=== PATIENT | male | born 1935 | race Hispanic/Latino ===

== ENCOUNTER 2018-02-02 15:33 | Inpatient (IN) | payer MEDICARE, MEDICAID ==
--- NOTE | 2018-02-02 15:38 | ED PDOC ---
Psych Transfer Clearance - Clearance Statement Clearance Statement: Reviewed vital signs, lab results and transfer papers. Patient clinically stable for psychiatric admission.
[2018-02-02 15:39] VITALS: O2SAT 96
[2018-02-02] MEDS ORDERED: Alum-Mag Hydrox-Simethicone Susp (30 mL) PO PRN (17:06)
[2018-02-02] MEDS ORDERED: Magnesium Hydroxide Susp 30 ml UD PO PRN (17:06)
[2018-02-02] MEDS ORDERED: Bismuth Subsalicylate 262 mg/15 ml Sus (240 ml) PO PRN (17:06)
--- NOTE | 2018-02-02 18:22 | PCM.BM ---
<Uma Colunga - Last Filed: 02/02/18 18:20> Treatment Plan Problems - Problems identified on initial assessmt Hopelessness/Helplessness Date Initiated: 02/02/18 Time Initiated: 18:21 Assessment reference: NA Status: Active Social Isolation Date Initiated: 02/02/18 Time Initiated: 18:21 Assessment reference: NA Status: Active Treatment assets and liabiliti Patient Assests: adapts well, cooperative, educated, ADL independent, physically healthy Patient Liabilities: live alone, poor support system, medical problems - Milieu Protocol Maintain good personal hygiene: daily Encourage regular showers, daily Remind patient to perform daily oral care, daily Assist patient to perform ADL's Maintain personal safety: daily Educate patient to report safety concerns to staff, daily Monitor environment for contraband/sharps, every shift Educate patient to report safety concerns to staff, every shift Monitor environment for contraband/sharps Medication safety: Monitor for expected outcome, potential side effects: daily, every shift, Assess barriers to learning: daily, every shift, Assess readiness for medication education: daily, every shift <Dorothy Munoz - Last Filed: 02/03/18 10:16> - Diagnosis (1) Major depressive disorder Status: Acute Interventions: Medication management, Individual and group therapy, Psychoeducation 02/03/18 10:16 <Phi Whipple - Last Filed: 02/04/18 15:57> Family Contact Family involvement: Family/SO is involved Family contact: Patient agrees to contact, Family has been contacted by patient , Telephone contact initiated by staff Family contact name: Sharmin Denis Family contacted how many times per week?: 3 Family contact comment: [employer]ist spoke with pt's cousin and POA, Sharmin , who reported that pt has episodes or "fits" as Sharmin reported that pt calls them where he becomes agitated, aggressive and threatening and will call her and her derogatory names when they do not do what he wants or feels that they are neglecting him. Sharmin reported that pt has even shaken his fists and cane at her and threatened to hit her. Sharmin reported that pt also goes through episodes of paranoia where he threatens to sunshine the government for opening his mail and breaking into his apartment. Pt has also had several bug infestations in his apartment and reported that the government planted bugs in his apartment to give him the bites. Sharmin then reported that pt hoards things in his apartment and used coffee cups in his car. - Goals for Treatment Patient goals for treatment: Pt offered no specific goals. Patient's family/SO goals for treatment: Pt's cousin, Sharmin, would like pt to be placed on medications to better manage his irritable behavior and paranoia. Discharge/Continuing Care - Education Needs Education Needs: Family Medication, Family Diagnosis/Disease Process, Family Coping Skills, Family Anger Management skills, Family Community resources, Family Personal Hygiene/Grooming, Family Aftercare Safety Plan, Patient Medication, Patient Diagnosis/Disease Process, Patient Coping Skills, Patient Anger Management skills, Patient Community resources, Patient Personal Hygiene/ Grooming, Patient Aftercare Safety Plan - Discharge Discharge Criteria: Tolerates medication w/o severe side effects, Free of paranoid thoughts, Free of agitation, Normal sleep pattern, Ability to care for self, Reduction of target symptoms Discharge to:: Home - Treatment Team Participation Patient/Family/SO Statement: 02/04/18 15:56 Pt reported that he was feeling better and denied any acute psychiatric concerns at this time. Pt did report that he wished that his family was more active in his life. Pt reported he already is connected to and attends a day program in [place]. Discussed with Family/SO: Yes Was Patient/Family/SO present at Treatment Team Meeting: Yes
--- NOTE | 2018-02-02 20:48 | CP.PCM.CON ---
History of Present Illness - History of Present Illness History of Present Illness: 82 y/o male obese with PMH bipolar disorder / depression not compliant with medications ( stopped taking his pills few months ago ) HTN, IDDM , history paroxysmal afib, sleep apnea , chronic skin dermatitis ?, has been transferred for psych admission from another ER . Medicine consulted for medical management . As per patient he has been diagnosed with depression long ago and has been hospitalized long time ago. He stopped taking his antidepressants few months ago and lately started feeling anxious and restless so decided to call his MD and go to ER for crisis eval. He denies any suicidal thoughts or ideation , denies hallucinations. Complains mostly of his weight and states that needs to loose weight.Denies any chest pain , SOB , palpitations, PND , orthopnea, urinary symptoms. States that had been having diarrhea while on Metformin/ januvia and after his PMD switched to insulin his diarrhea has resolved . 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 Yumiko Dominguez Review of Systems - Review of Systems All systems: reviewed and no additional remarkable complaints except Past Patient History - Tetanus Immunizations Tetanus Immunization: Unknown - Past Medical History & Family History Past Medical History?: Yes Past Family History: Reviewed and not pertinent - Past Social History Smoking Status: Never Smoked Chewing Tobacco Use: No Cigar Use: No Alcohol: None Drugs: Denies Home Situation {Lives}: Alone Domestic Violence: Negative - CARDIAC Hx Hypertension: Yes Other/Comment: high cholesterol - PULMONARY Hx Respiratory Disorders: No - NEUROLOGICAL Hx Neurological Disorder: No - HEENT Hx HEENT Problems: No Other/Comment: 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 - RENAL Hx Chronic Kidney Disease: No - ENDOCRINE/METABOLIC Hx Diabetes Mellitus Type 2: Yes - HEMATOLOGICAL/ONCOLOGICAL Hx Blood Disorders: No - INTEGUMENTARY Hx Dermatological Problems: No - MUSCULOSKELETAL/RHEUMATOLOGICAL Hx Arthritis: Yes (in the fngers) Hx Falls: No - GASTROINTESTINAL Hx Gastrointestinal Disorders: No - GENITOURINARY/GYNECOLOGICAL Hx Genitourinary Disorders: No - PSYCHIATRIC Hx Anxiety: Yes Hx Depression: Yes Hx Substance Use: No - SURGICAL HISTORY Hx Surgeries: Yes Hx Cataract Extraction: Yes (right eye) Other/Comment: inguinal hernia correction(1984) - ANESTHESIA Hx Anesthesia: Yes Hx Anesthesia Reactions: No Hx Malignant Hyperthermia: No Has any member of the family had a problem w/ anesthesia?: No Meds Allergies/Adverse Reactions: Allergies Allergy/AdvReac Type Severity Reaction Status Date / Time No Known Allergies Allergy Verified 02/02/18 15:37 - Medications Medications: Current Medications Acetaminophen (Tylenol 325mg Tab) 650 mg PO Q4 PRN PRN Reason: Pain, moderate (4-7) Al Hydrox/Mg Hydrox/Simethicone (Maalox Plus 30 Ml) 30 ml PO Q4 PRN PRN Reason: Dyspepsia Atorvastatin Calcium (Lipitor) 10 mg PO DAILY [facility] Bismuth Subsalicylate (Pepto-Bismol) 524 mg PO Q4 PRN PRN Reason: Diarrhea Home Med (Isosorbide Dinitrate [Isosorbide Dinitrate Er]) 60 mg PO DAILY [facility] Insulin Human Lispro (Humalog) 0 units SC ACHS PETER PRN Reason: Protocol Insulin Human Lispro (Humalog) 35 units SC ACB [facility] Insulin Lispro Protam/Lispro Human (Humalog Mix 75/25) 45 units SC ACD [facility] Lisinopril (Zestril) 20 mg PO DAILY [facility] Lorazepam (Ativan) 0.5 mg PO HS PRN PRN Reason: Insomnia Stop: 02/16/18 17:07 Lorazepam (Ativan) 0.5 mg PO Q6 PRN PRN Reason: Anxiety Lorazepam (Ativan) 0.5 mg IM Q6 PRN PRN Reason: Agitation Magnesium Hydroxide (Milk Of Magnesia) 30 ml PO HS PRN PRN Reason: Constipation Metoprolol Succinate (Toprol Xl) 50 mg PO DAILY [facility] Mupirocin (Bactroban Ointment) 1 applic TOP DAILY [facility] Prednisolone Acetate (Pred Forte 1% Opht Susp) 1 drop OU DAILY [facility] Quetiapine Fumarate (Seroquel) 25 mg PO HS [facility] Sitagliptin Phosphate (Januvia) 100 mg PO DAILY [facility] Physical Exam - Constitutional Appears: Non-toxic, No Acute Distress - Head Exam Head Exam: ATRAUMATIC, NORMAL INSPECTION, NORMOCEPHALIC - Eye Exam Additional comments: right eye blindness left eye cataract? - ENT Exam ENT Exam: Mucous Membranes Moist, Normal Exam - Neck Exam Neck exam: Positive for: Full Rom, Normal Inspection - Respiratory Exam Respiratory Exam: Clear to Auscultation Bilateral, NORMAL BREATHING PATTERN. absent: Rales, Rhonchi, Wheezes - Cardiovascular Exam Cardiovascular Exam: REGULAR RHYTHM, RRR, +S1, +S2. absent: JVD - GI/Abdominal Exam GI & Abdominal Exam: Distended (obese ), Normal Bowel Sounds, Soft. absent: Hernia, Mass, Rebound, Tenderness - Rectal Exam Rectal Exam: Deferred - Extremities Exam Extremities exam: Positive for: normal capillary refill, normal inspection, pedal pulses present. Negative for: pedal edema Additional comments: bilateral contact dermatitis with erythema and dry skin - Back Exam Back exam: NORMAL INSPECTION - Neurological Exam Neurological exam: Alert - Psychiatric Exam Psychiatric exam: Anxious, Flat Affect - Skin Skin Exam: Dry, Rash (to bilateral LE ) Results - Vital Signs Recent Vital Signs: Last Vital Signs Temp 99.0 F 02/02/18 15:38 Pulse 77 02/02/18 15:38 Resp 20 02/02/18 16:58 BP 149/80 02/02/18 15:38 Pulse Ox 96 02/02/18 15:38 - Labs Labs: Laboratory Results - last 24 hr 02/02/18 19:52 POC Glucose (mg/dL) 312 H Assessment & Plan - Assessment and Plan (Free Text) Assessment: 82 y/o male obese with PMH bipolar disorder / depression not compliant with medications ( stopped taking his pills few months ago ) HTN, IDDM , history paroxysmal afib, sleep apnea , chronic skin dermatitis ?, has been transferred for psych admission from another ER . Medicine consulted for medical management . As per patient he has been diagnosed with depression long ago and has been hospitalized long time ago. He stopped taking his antidepressants few months ago and lately started feeling anxious and restless so decided to call his MD and go to ER for crisis eval. He denies any suicidal thoughts or ideation , denies hallucinations. Complains mostly of his weight and states that needs to loose weight.Denies any chest pain , SOB , palpitations, PND , orthopnea, urinary symptoms. States that had been having diarrhea while on Metformin/ januvia and after his PMD switched to insulin his diarrhea has resolved . 1. Bipolar disorder/ depression management as per psych check TSH , Vitamin B12 , RPR Repeat CBC and CMP 2. IDDM resume home insulin regiment 45 unit SAQ in PM and 35 unit AM Accuchecks , insulin coverage diabetic diet 3.Hypertension Resume home meds lisinopril 4. Skin psoriatic Dermatitis ?? on topical steroids patient has follow up for skin biopsy as outpatient 5. Obesity BMI 31 6. 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
[2018-02-02] MEDS: Insulin Lispro (humaLOG) 100 Units/ml Inj SC SCH (21:08)
[2018-02-02 23:07] LABS: URINE BILIRUBIN NEGATIVE (NEGATIVE); URINE BLOOD NEGATIVE (NEGATIVE); URINE CLARITY CLEAR (Clear); URINE COLOR STRAW (YELLOW); URINE GLUCOSE (UA) 50 mg/dL (Normal); URINE LEUKOCYTE ESTERASE NEG Leu/uL (Negative); URINE PROTEIN NEGATIVE (NEGATIVE); URINE UROBILINOGEN 0.2-1.0 mg/dL (0.2-1.0)
[2018-02-03] MEDS ORDERED: INSULIN ASPART 35 UNIT SC SCH (07:30)
[2018-02-03] MEDS: Insulin Lispro (humaLOG) 100 Units/ml Inj SC SCH ×5 (08:27→21:08)
[2018-02-03] MEDS: Metoprolol Succinate 50 mg XL Tab PO SCH (08:29)
[2018-02-03] MEDS: PrednisoLONE 1% OPTH SUSP OU SCH (08:31)
[2018-02-03 09:32] LABS: HDL CHOLESTEROL 41 MG/DL (30-70)
[2018-02-03 09:42] LABS: LDL CHOLESTEROL 63 mg/dL (0-129)
[2018-02-03 09:48] LABS: T4 5.44 ug/dl (5.5-11.0)
[2018-02-03 10:05] LABS: FERRITIN 34.5 ng/Ml (17.9-464)
--- NOTE | 2018-02-03 10:17 | PCM.PSYCH ---
Initial Psychiatric Evaluation - Initial Psychiatric Evaluation Type of Admission: Voluntary Legal Status: Capacity Chief Complaint (in patient's own words): "I'm depressed." Patient's Reaction to Hospitalization: HPI: 82 yo male w/ h/o depression, not compliant with medication, presented w/ worsening depression and anxiety. +Sleep/appetite disturbances. +Feelings of helplessness/hopelessness. No acute AH/VH/SI/HI/paranoia/delusions/dejan. Patient reports that being estranged from his family causes him to feel lonely and depressed. He was agreeable to restarting treatment w/ antidepressant medication. PPHx: H/o outpatient psychiatric treatment, was on Paxil, but has been non- compliant. History of 3 or 4 psychiatric hospitalizations for depression in the past, but denies recent admissions. 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 ALL: NKDA Current Medications: Active Medications Generic Name Dose Route Start Last Admin Trade Name Freq PRN Reason Stop Dose Admin Acetaminophen 650 mg 02/02/18 17:06 Tylenol 325mg Tab PO Q4 PRN Pain, moderate (4-7) Al Hydrox/Mg Hydrox/Simethicone 30 ml 02/02/18 17:06 Maalox Plus 30 Ml PO Q4 PRN Dyspepsia Atorvastatin Calcium 10 mg 02/03/18 09:00 02/03/18 08:31 Lipitor PO 10 mg DAILY [facility]ER Administration Bismuth Subsalicylate 524 mg 02/02/18 17:06 Pepto-Bismol PO Q4 PRN Diarrhea Home Med 60 mg 02/03/18 09:00 Isosorbide Dinitrate [Isosorbide Dinitrate Er] PO DAILY [facility] Insulin Human Lispro 0 units 02/02/18 22:00 02/03/18 08:28 Humalog SC 1 u ACHS PETER Administration Protocol Insulin Human Lispro 35 units 02/03/18 09:00 02/03/18 08:27 Humalog SC 186 u ACB [facility]ER Administration Insulin Lispro Protam/Lispro Human 45 units 02/03/18 16:30 Humalog Mix 75/25 SC ACD [facility] Lisinopril 20 mg 02/03/18 09:00 02/03/18 08:31 Zestril PO 20 mg DAILY [facility] Administration Lorazepam 0.5 mg 02/02/18 17:06 02/02/18 22:30 Ativan PO 02/16/18 17:07 0.5 mg HS PRN Administration Insomnia Lorazepam 0.5 mg 02/02/18 17:07 Ativan PO Q6 PRN Anxiety Lorazepam 0.5 mg 02/02/18 18:30 Ativan IM Q6 PRN Agitation Magnesium Hydroxide 30 ml 02/02/18 17:06 Milk Of Magnesia PO HS PRN Constipation Metoprolol Succinate 50 mg 02/03/18 09:00 02/03/18 08:29 Toprol Xl PO 50 mg DAILY [facility] Administration Mupirocin 1 applic 02/03/18 09:00 02/03/18 08:29 Bactroban Ointment TOP 1 appl DAILY [facility] Administration Prednisolone Acetate 1 drop 02/03/18 09:00 02/03/18 08:31 Pred Forte 1% Opht Susp OU 1 drop DAILY [facility] Administration Quetiapine Fumarate 25 mg 02/02/18 22:00 02/02/18 21:08 Seroquel PO 25 mg HS PETER Administration Sitagliptin Phosphate 100 mg 02/03/18 09:00 02/03/18 08:31 Januvia PO 100 mg DAILY [facility] Administration Past Psychiatric History - Past Psychiatric History Previous Treatment History: Inpatient Pertinent Medical Hx (Current Medical&Sleep Prob, Allergies): Allergies Allergy/AdvReac Type Severity Reaction Status Date / Time No Known Allergies Allergy Verified 02/02/18 15:37 Atorvastatin [Lipitor] 10 mg PO DAILY 02/02/18 Cephalexin [Keflex] 500 mg PO Q8 02/02/18 Desoximetasone 0.25% [Topicort 0.25%] 1 % TOP DAILY 02/02/18 Insulin Aspart [Novolog Flexpen] 35 units SC DAILY 02/02/18 Insulin Aspart/Insulin Aspar [Novolog Mix 70/30 (70/30 units/ml)] 45 units SC AC 02/02/18 Isosorbide Dinitrate [Isosorbide Dinitrate ER] 60 mg PO DAILY 02/02/18 Lisinopril [Zestril] 20 mg PO DAILY 02/02/18 Metoprolol Succinate [Toprol XL] 50 mg PO DAILY 02/02/18 Mupirocin 2% Ointment [Bactroban Ointment] 1 % TOP DAILY 02/02/18 PARoxetine [Paxil] 45 mg PO DAILY 02/02/18 PrednisoLONE 1% [Pred Forte 1% Opht Susp] 1 drop RIGHTEYE DAILY 02/02/18 SITagliptin [Januvia] 100 mg PO DAILY 02/02/18 Review of Systems - Neurological Neurological: Abnormal Gait - Psychiatric Psychiatric: Abnormal Sleep Pattern, Anhedonia, Anxiety, Behavioral Changes, Change in Appetite, Depression, Difficulty Concentrating, Hopelessness, Irritability, Memory Loss, Mood Swings Mental Status Examination - Personal Presentation Personal Presentation: Looks stated age - Affect Affect: Constricted, Depressed - Motor Activity Motor Activity: Calm - Reliability in Providing Information Reliability in Providing Information: Fair - Speech Speech: Coherent - Mood Mood: Depressed - Formal Thought Process Formal Thought Process: Loosening of associations - Hallucinations/Delusions Additional comments: No AH/VH/paranoia/delusions - Obsessions/Compulsions Obsessions: No Compulsions: No - Cognitive Functions Orientation: Person, Place, Situation, Time Sensorium: Alert Estimate of Intelligence: Average Judgement: Intact, as evidence by: Insight regarding need for hospitalization Memory: Recent intact, as evidence by: Ability to recall events of the day, Remote intact, as evidenced by: Abilit to recall sig. life events - Risk Risk: Diminished functioning - Strength & Assets Inventory Strength & Assets Inventory: Cooperative - Limitations Limitations: Decreased memory, recent DSM 5 DX - DSM 5 DSM 5 Diagnosis: Major Depressive Disorder - Recommended/Plan of Treatment Treatment Recommendations and Plan of Treatment: Major Depressive Disorder; r/o Dementia -Admit to psychiatry unit -Individual and group therapy -Psychoeducation -Medicine consult -Start Remeron 7.5 mg PO HS; will titrate as clinically indicated -PT/OT screening -Psychology consult -Disposition planning Projected ELOS: 5-10 days Discharge Plan and Discharge Criteria: Discharge when patient is psychiatrically stable - Smoking Cessation Smoking Cessation Initiated: No Reason for not providing: Not indicated
[2018-02-03 11:12] LABS: HEMOGLOBIN 14.4 g/dL (12.0-18.0); MEAN CELL VOLUME 86.2 fl (80.0-94.0); MEAN CORPUSCULAR HEMOGLOBIN 28.4 pg (27.0-31.0); RBC 5.05 Mil/uL (4.40-5.90); RED CELL DISTRIBUTION WIDTH 16.2 % (11.5-14.5); WHITE BLOOD COUNT 7.1 K/uL (4.8-10.8)
[2018-02-03 11:27] LABS: ALB/GLOB RATIO 1.2 (1.0-2.1); ALBUMIN 3.9 g/dL (3.5-5.0); ALT/SGPT 63 U/L (21-72); AST/SGOT 45 U/L (17-59); BLOOD UREA NITROGEN 22 mg/dl (9-20); GFR AFRICAN-AMERICAN > 60; GFR NON-AFRICAN AMERICAN > 60
[2018-02-03] MEDS ORDERED: INSULIN ASPART SC SCH (16:30)
[2018-02-03] MEDS ORDERED: [UNRECOGNIZED DRUG - OTHER] SC SCH (16:30)
[2018-02-03] MEDS ORDERED: INSULIN ASPAR SC SCH (16:30)
[2018-02-03] MEDS: Insulin Lispro Mix 75/25 100 units/ml (HumaLog) 10ml SC SCH (16:47)
[2018-02-03 17:13] LABS: FOLATE > 20.0 ng/mL
[2018-02-04] MEDS: guaiFENesin 100 mg/5 ml Syrup UD PO PRN (00:37)
[2018-02-04] MEDS: Insulin Lispro (humaLOG) 100 Units/ml Inj SC SCH ×5 (08:34→21:16)
[2018-02-04] MEDS: PrednisoLONE 1% OPTH SUSP OU SCH (08:41)
[2018-02-04] MEDS: Metoprolol Succinate 50 mg XL Tab PO SCH (08:42)
--- NOTE | 2018-02-04 08:54 | PCM.PYCHPN ---
Psychiatric Progress Note - Psychiatric Progress Note Patient seen today, length of contact: Patient evaulated, case discussed with team, chart reviewed Patient Chief Complaint: "I'm depressed." Problems Identified/Issues Discussed: Patient continues to report feeling depressed. He acknowledges that he has not been compliant with medications and psychiatric follow-up. Psychoeducation provided on the importance of treatment. He continues to report difficulty sleeping. We discussed continued titration of Remeron. No AH/VH/SI/HI. No adverse effects to medications reported. Medication Change: No Medical Record Reviewed: Yes Consults ordered or reviewed: Medicine consult, PT Mental Status Examination - Cognitive Function Orientation: Person, Place, Situation, Time Memory: Impaired Decription of patient's judgement and insights: Fair I/J - Mood Mood: Depressed - Affect Affect: Constricted, Depressed - Formal Thought Process Formal Thought Process: Loosening of associations Psychotic Thoughts and Behaviors: No AH/VH/paranoia - Suicidal Ideation Suicidal Ideation: No - Homicidal Ideation Homicidal Ideation: No Goal/Treatment Plan - Goal/Treatment Plan Need for Continued Stay: Remain at risks for inpatient hospitalization, Severe depression anxiety, Discharge may exacerbated symptoms Progress Toward Problem(s) and Goals/Treatment Plan: Major Depressive Disorder; r/o Dementia -Individual and group therapy -Psychoeducation -Medicine consult -Continue Remeron 7.5 mg PO HS; will titrate as clinically indicated -PT/OT screening -Disposition planning Estimated Date of D/C: 02/08/18
--- NOTE | 2018-02-04 11:22 | CP.PCM.CON ---
History of Present Illness - History of Present Illness History of Present Illness: Pt is an 82 year old male admitted to the geropsych unit of [facility] and referred to the policy writer for evalaution. On the DRS, pt scored an overall score of 130. Pt scored within normal limits on Attention, Construction, Conceptualization, and Memory tasks. Pt's Iniitation skills fell in the Borderline Range. Overall 127 Attention 34 within nomral limits Initiation 29 (32+ wnl) Conceptualization 36 Memory 22 Construction 6 Significant cognitive deficits were not revealed. Thank you for this referral, Dr. 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 - RENAL Hx Chronic Kidney Disease: No - ENDOCRINE/METABOLIC Hx Diabetes Mellitus Type 2: Yes - HEMATOLOGICAL/ONCOLOGICAL Hx Blood Disorders: No - INTEGUMENTARY Hx Dermatological Problems: No - MUSCULOSKELETAL/RHEUMATOLOGICAL Hx Arthritis: Yes (in the fngers) Hx Falls: No - GASTROINTESTINAL Hx Gastrointestinal Disorders: No - GENITOURINARY/GYNECOLOGICAL Hx Genitourinary Disorders: No - PSYCHIATRIC Hx Anxiety: Yes Hx Depression: Yes Hx Substance Use: No - SURGICAL HISTORY Hx Surgeries: Yes Hx Cataract Extraction: Yes (right eye) Other/Comment: inguinal hernia correction(1984) - ANESTHESIA Hx Anesthesia: Yes Hx Anesthesia Reactions: No Hx Malignant Hyperthermia: No Has any member of the family had a problem w/ anesthesia?: No Meds Allergies/Adverse Reactions: Allergies Allergy/AdvReac Type Severity Reaction Status Date / Time No Known Allergies Allergy Verified 02/02/18 15:37 - Medications Medications: Current Medications Acetaminophen (Tylenol 325mg Tab) 650 mg PO Q4 PRN PRN Reason: Pain, moderate (4-7) Al Hydrox/Mg Hydrox/Simethicone (Maalox Plus 30 Ml) 30 ml PO Q4 PRN PRN Reason: Dyspepsia Atorvastatin Calcium (Lipitor) 10 mg PO DAILY [facility] Last Admin: 02/04/18 08:41 Dose: 10 mg Bismuth Subsalicylate (Pepto-Bismol) 524 mg PO Q4 PRN PRN Reason: Diarrhea Guaifenesin (Robitussin) 100 mg PO Q6 PRN PRN Reason: Cough Last Admin: 02/04/18 00:37 Dose: 100 mg Insulin Human Lispro (Humalog) 0 units SC ACHS [facility] PRN Reason: Protocol Last Admin: 02/04/18 08:34 Dose: Not Given Insulin Human Lispro (Humalog) 35 units SC ACB [facility] Last Admin: 02/04/18 08:37 Dose: 35 u Insulin Lispro Protam/Lispro Human (Humalog Mix 75/25) 45 units SC ACD [facility] Last Admin: 02/03/18 16:47 Dose: 45 units Isosorbide Dinitrate (Isordil) 10 mg PO TID [facility] Last Admin: 02/04/18 08:40 Dose: 10 mg Lisinopril (Zestril) 20 mg PO DAILY [facility] Last Admin: 02/04/18 08:43 Dose: 20 mg Lorazepam (Ativan) 0.5 mg PO HS PRN PRN Reason: Insomnia Stop: 02/16/18 17:07 Last Admin: 02/04/18 00:04 Dose: 0.5 mg Lorazepam (Ativan) 0.5 mg PO Q6 PRN PRN Reason: Anxiety Lorazepam (Ativan) 0.5 mg IM Q6 PRN PRN Reason: Agitation Magnesium Hydroxide (Milk Of Magnesia) 30 ml PO HS PRN PRN Reason: Constipation Metoprolol Succinate (Toprol Xl) 50 mg PO DAILY [facility] Last Admin: 02/04/18 08:42 Dose: 50 mg Mirtazapine (Remeron) 7.5 mg PO ONCE ONE Stop: 02/04/18 21:01 Mirtazapine (Remeron) 15 mg PO HS [facility] Mupirocin (Bactroban Ointment) 1 applic TOP DAILY [facility] Last Admin: 02/03/18 08:29 Dose: 1 appl Prednisolone Acetate (Pred Forte 1% Opht Susp) 1 drop OU DAILY [facility] Last Admin: 02/04/18 08:41 Dose: 1 drop Sitagliptin Phosphate (Januvia) 100 mg PO DAILY [facility] Last Admin: 06/01/18 08:41 Dose: 100 mg Results - Vital Signs Recent Vital Signs: Last Vital Signs Temp 97.2 F L 02/04/18 05:42 Pulse 77 02/04/18 08:43 Resp 18 02/04/18 05:42 BP 137/77 02/04/18 08:43 Pulse Ox 96 02/02/18 15:38 - Labs Result Diagrams: 02/03/18 09:00 02/03/18 09:00 Labs: Laboratory Results - last 24 hr 02/03/18 02/03/18 02/03/18 08:45 08:45 08:45 Sodium Potassium Chloride Carbon Dioxide Anion Gap BUN Creatinine Est GFR ( Amer) Est GFR (Non-Af Amer) POC Glucose (mg/dL) Random Glucose Hemoglobin A1c 9.4 H Calcium Ferritin 34.5 Total Bilirubin AST ALT Alkaline Phosphatase Total Protein Albumin Globulin Albumin/Globulin Ratio Triglycerides 87 Cholesterol 133 LDL Cholesterol Direct 63 HDL Cholesterol 41 Vitamin B12 440 Folate > 20.0 Thyroxine (T4) 5.44 L TSH 3rd Generation 4.11 RPR Nonreactive 02/03/18 02/03/18 02/03/18 09:00 12:26 15:30 Sodium 140 Potassium 4.5 Chloride 105 Carbon Dioxide 26 Anion Gap 14 BUN 22 H Creatinine 0.7 L Est GFR ( Amer) > 60 Est GFR (Non-Af Amer) > 60 POC Glucose (mg/dL) 114 H 175 H Random Glucose 199 H Hemoglobin A1c Calcium 10.0 Ferritin Total Bilirubin 1.8 H AST 45 ALT 63 Alkaline Phosphatase 143 H Total Protein 7.2 Albumin 3.9 Globulin 3.3 Albumin/Globulin Ratio 1.2 Triglycerides Cholesterol LDL Cholesterol Direct HDL Cholesterol Vitamin B12 Folate Thyroxine (T4) TSH 3rd Generation RPR 02/03/18 02/04/18 20:08 06:01 Sodium Potassium Chloride Carbon Dioxide Anion Gap BUN Creatinine Est GFR ( Amer) Est GFR (Non-Af Amer) POC Glucose (mg/dL) 181 H 131 H Random Glucose Hemoglobin A1c Calcium Ferritin Total Bilirubin AST ALT Alkaline Phosphatase Total Protein Albumin Globulin Albumin/Globulin Ratio Triglycerides Cholesterol LDL Cholesterol Direct HDL Cholesterol Vitamin B12 Folate Thyroxine (T4) TSH 3rd Generation RPR
[2018-02-04] MEDS: Insulin Lispro Mix 75/25 100 units/ml (HumaLog) 10ml SC SCH (16:57)
[2018-02-05] MEDS: Insulin Lispro (humaLOG) 100 Units/ml Inj SC SCH ×5 (08:17→21:03)
[2018-02-05] MEDS: Metoprolol Succinate 50 mg XL Tab PO SCH (08:25)
[2018-02-05] MEDS: PrednisoLONE 1% OPTH SUSP OU SCH (08:25)
--- NOTE | 2018-02-05 10:06 | PCM.PYCHPN ---
Psychiatric Progress Note - Psychiatric Progress Note Patient seen today, length of contact: Patient evaulated, case discussed with team, chart reviewed Patient Chief Complaint: pt is less depressed and less anxious and denies side effects Medication Change: No Medical Record Reviewed: Yes Mental Status Examination - Cognitive Function Orientation: Person, Place, Situation, Time Memory: Impaired - Mood Mood: Depressed - Affect Affect: Constricted, Depressed - Formal Thought Process Formal Thought Process: Loosening of associations - Suicidal Ideation Suicidal Ideation: No - Homicidal Ideation Homicidal Ideation: No Goal/Treatment Plan - Goal/Treatment Plan Need for Continued Stay: Remain at risks for inpatient hospitalization, Severe depression anxiety, Discharge may exacerbated symptoms Progress Toward Problem(s) and Goals/Treatment Plan: will continue titrate meds and engage pt in therapy Estimated Date of D/C: 02/08/18
[2018-02-05] MEDS: guaiFENesin 100 mg/5 ml Syrup UD PO PRN (17:01)
[2018-02-05] MEDS: Insulin Lispro Mix 75/25 100 units/ml (HumaLog) 10ml SC SCH (17:06)
[2018-02-06] MEDS: Insulin Lispro (humaLOG) 100 Units/ml Inj SC SCH ×5 (08:51→21:07)
[2018-02-06] MEDS: Metoprolol Succinate 50 mg XL Tab PO SCH (08:53)
[2018-02-06] MEDS: PrednisoLONE 1% OPTH SUSP OU SCH ×2 (08:55→09:10)
[2018-02-06] MEDS: guaiFENesin 100 mg/5 ml Syrup UD PO PRN (08:56)
--- NOTE | 2018-02-06 14:40 | PCM.PYCHPN ---
Psychiatric Progress Note - Psychiatric Progress Note Patient seen today, length of contact: Patient evaulated, case discussed with team, chart reviewed Patient Chief Complaint: pt is less depressed and less anxious but still remains withdrawn staying in the room.pt denies suicidal ideation and still with limited insight .pt says that he has racing thoughts at bedtime and cant sleep Medication Change: Yes (increase remeron) Medical Record Reviewed: Yes Mental Status Examination - Cognitive Function Orientation: Person, Place, Situation, Time Memory: Intact, Impaired Attention: Poor Concentration: Poor Association: WNL Fund of Knowledge: WNL - Mood Mood: Depressed - Affect Affect: Constricted, Depressed - Formal Thought Process Formal Thought Process: Loosening of associations - Suicidal Ideation Suicidal Ideation: No - Homicidal Ideation Homicidal Ideation: No Goal/Treatment Plan - Goal/Treatment Plan Need for Continued Stay: Remain at risks for inpatient hospitalization, Severe depression anxiety, Discharge may exacerbated symptoms Progress Toward Problem(s) and Goals/Treatment Plan: will continue titrate remeron to 30 mg hs to target depression and insomnia and titrate as needed and engage pt in therapy and activities . Estimated Date of D/C: 02/08/18
[2018-02-06] MEDS: Insulin Lispro Mix 75/25 100 units/ml (HumaLog) 10ml SC SCH (17:05)
[2018-02-07] MEDS: guaiFENesin 100 mg/5 ml Syrup UD PO PRN ×2 (08:28→18:35)
[2018-02-07] MEDS: PrednisoLONE 1% OPTH SUSP OU SCH (08:29)
[2018-02-07] MEDS: Insulin Lispro (humaLOG) 100 Units/ml Inj SC SCH ×5 (08:30→21:03)
--- NOTE | 2018-02-07 11:24 | PCM.PYCHPN ---
Psychiatric Progress Note - Psychiatric Progress Note Patient seen today, length of contact: Patient evaulated, case discussed with team, chart reviewed Patient Chief Complaint: "I'm okay." Problems Identified/Issues Discussed: Patient reports that his mood is improving. He is goal oriented towards discharge. He reports continued difficulty sleeping at times. His appetite is normal. No AH/VH/SI/HI. He denies acute paranoia towards others or his family. He has been in good behavioral control. No adverse effects to medications reported. Medication Change: No Medical Record Reviewed: Yes Consults ordered or reviewed: Medicine consult, PT Psychology consult: Pt is an 82 year old male admitted to the geropsych unit of [facility] and referred to the physician underwriter for evalaution. On the DRS, pt scored an overall score of 130. Pt scored within normal limits on Attention, Construction, Conceptualization, and Memory tasks. Pt's Iniitation skills fell in the Borderline Range. Overall 127 Attention 34 within nomral limits Initiation 29 (32+ wnl) Conceptualization 36 Memory 22 Construction 6 Significant cognitive deficits were not revealed. Thank you for this referral, Dr. Matt Mental Status Examination - Cognitive Function Orientation: Person, Place, Situation, Time Memory: Intact Attention: WNL Concentration: WNL Association: WNL Fund of Knowledge: WNL Decription of patient's judgement and insights: Fair I/J - Mood Mood: Depressed - Affect Affect: Broad - Speech Speech: Appropriate - Formal Thought Process Formal Thought Process: Circumstantial (Circumstantial at times, mostly linear) Psychotic Thoughts and Behaviors: Denies AH/VH/paranoia - Suicidal Ideation Suicidal Ideation: No - Homicidal Ideation Homicidal Ideation: No Goal/Treatment Plan - Goal/Treatment Plan Need for Continued Stay: Severe depression anxiety, Discharge may exacerbated symptoms Progress Toward Problem(s) and Goals/Treatment Plan: Major Depressive Disorder -Individual and group therapy -Psychoeducation -Medicine consult -Continue Remeron 15 mg PO HS and Seroquel 25 mg PO HS -PT -Psychology consult -Disposition planning- likely discharge to home tomorrow if patient continues to improve clinically Estimated Date of D/C: 02/08/18
[2018-02-07] MEDS: Metoprolol Succinate 50 mg XL Tab PO SCH (12:53)
[2018-02-07 16:03] VITALS: TEMP 96.8
[2018-02-07] MEDS: Insulin Lispro Mix 75/25 100 units/ml (HumaLog) 10ml SC SCH (16:45)
[2018-02-08 06:09] VITALS: PULSE 63; RESP 19
[2018-02-08] MEDS: Insulin Lispro (humaLOG) 100 Units/ml Inj SC SCH ×3 (08:58→13:16)
[2018-02-08] MEDS: PrednisoLONE 1% OPTH SUSP OU SCH (09:03)
[2018-02-08] MEDS: Metoprolol Succinate 50 mg XL Tab PO SCH (09:03)
[2018-02-08 09:05] VITALS: BP 113/60
--- NOTE | 2018-02-08 10:39 | PCM.PYCHDC ---
Mental Status Examination - Mental Status Examination Orientation: Person, Place, Situation, Time Memory: Intact Mood: Neutral Affect: Broad Speech: Appropriate Attention: WNL Concentration: WNL Association: WNL Fund of Knowledge: WNL Formal Thought Process: No Impairment Description of patient's judgement and insight: Fair I/J Psychotic Thoughts and Behaviors: Denies AH/VH/paranoia Suicidal Ideation: No Current Homicidal Ideation?: No Discharge Summary - Discharge Note Reason for Hospitalization: HPI: 82 yo male w/ h/o depression, not compliant with medication, presented w/ worsening depression and anxiety. +Sleep/appetite disturbances. +Feelings of helplessness/hopelessness. No acute AH/VH/SI/HI/paranoia/delusions/dejan. Patient reports that being estranged from his family causes him to feel lonely and depressed. He was agreeable to restarting treatment w/ antidepressant medication. PPHx: H/o outpatient psychiatric treatment, was on Paxil, but has been non- compliant. History of 3 or 4 psychiatric hospitalizations for depression in the past, but denies recent admissions. 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 Reason for request. 2. Findings. 3. Follow-up Consultations: Medicine consult, PT Psychology consult: Pt is an 82 year old male admitted to the geropsych unit of [facility] and referred to the account underwriter for evalaution. On the DRS, pt scored an overall score of 130. Pt scored within normal limits on Attention, Construction, Conceptualization, and Memory tasks. Pt's Iniitation skills fell in the Borderline Range. Overall 127 Attention 34 within nomral limits Initiation 29 (32+ wnl) Conceptualization 36 Memory 22 Construction 6 Significant cognitive deficits were not revealed. Thank you for this referral, Dr. Matt Summary of Hospital Course include:: 1. Description of specific treatment plan utilized for patients during their course of treatmen. 2. Summarize the time- course for resolution of acute symptoms and/or regressed behaviors. 3. Describe issues identified and worked on during hospitalization. 4. Describe medication utilized. 5. Describe medical problems identified and treated. 6. Reassessment of suicide risk Summary of Hospital Course: Patient was admitted to the geriatric psychiatry unit. Individual and group therapy were provided. Patient was stabilized on Remeron 15 mg PO HS and Seroquel 25 mg PO HS. Medicine consult and physical therapy consults were completed. Patient reports that his mood has improved and he is currently psychiatrically stable for discharge at this time. - Diagnosis (1) Major depressive disorder Current Visit: Yes Status: Chronic - Final Diagnosis (DSM 5) Condition upon Discharge: STABLE DSM 5: Major Depressive Disorder Disposition: HOME/ ROUTINE Follow-up Treatment Plan: Major Depressive Disorder -Individual and group therapy -Psychoeducation -Medicine consult -Continue Remeron 15 mg PO HS and Seroquel 25 mg PO HS -Physical Therapy -Psychology consult -Disposition planning- Discharge to home w/ continued outpatient follow-up Prescriptions/Medication Reconciliation: Insulin Aspart Prot/Insuln Asp [Novolog Mix 70-30 Vial] 35 unit SC ACB #1 vial Isosorbide Dinitrate [Isordil] 10 mg PO TID #90 tab Mirtazapine [Remeron] 15 mg PO HS #30 tab QUEtiapine [Seroquel] 25 mg PO HS #30 tab - Smoking Cessation Smoking Cessation Medication prescribed: No Reason for not providing: Not indicated - Antipsychotic Medications Pt discharged on 2 or more routine antipsychotic medications: No
== END 2018-02-08 15:16 | disposition home or self-care (01) | DRG 881 ==
LOC: H.ER 15:33 → H.STEP 15:37
PROVIDERS: ADMIT Psychiatry & Neurology Psychiatry; ATTEND Psychiatry & Neurology Psychiatry
PROC: GZHZZZZ Group Psychotherapy (ICD-10-PCS; principal; 2018-02-03)
PROC: GZ56ZZZ Individual Psychotherapy, Supportive (ICD-10-PCS; 2018-02-03)
DX: F32.9 Major depressive disorder, single episode, unspecified (principal); E11.319 Type 2 diabetes mellitus with unspecified diabetic retinopathy without macular edema; E66.9 Obesity, unspecified; E78.00 Pure hypercholesterolemia, unspecified; E78.5 Hyperlipidemia, unspecified; F22 Delusional disorders; F31.9 Bipolar disorder, unspecified; G47.00 Insomnia, unspecified; G47.30 Sleep apnea, unspecified; H54.61 Unqualified visual loss, right eye, normal vision left eye; I10 Essential (primary) hypertension; I48.0 Paroxysmal atrial fibrillation; Z68.31 Body mass index [BMI] 31.0-31.9, adult; Z79.899 Other long term (current) drug therapy; Z91.14 Patient's other noncompliance with medication regimen; Z91.19 Patient's noncompliance with other medical treatment and regimen; F41.9 Anxiety disorder, unspecified; M19.90 Unspecified osteoarthritis, unspecified site; R19.7 Diarrhea, unspecified; Z98.41 Cataract extraction status, right eye